=== PATIENT | male | born 1960 | race Two or more races ===

== ENCOUNTER 2020-09-21 08:37 | Inpatient (IN) | payer MEDICARE ==
[~2020-09-21] VITALS: Ht 170.2 cm; Wt 65.6 kg
[2020-09-21] MEDS ORDERED: ASPIRIN ENTERIC COATED 325 MG TABLET.DR. PO ONE (08:45)
--- NOTE | 2020-09-21 08:59 | PHYS DOC ---
Past History Past Medical History: Diabetes, Hypertension, Stroke Past Surgical History: No Surgical History Alcohol Use: None Adult General Chief Complaint Chief Complaint: WEAKNESS/GENERALIZED HPI HPI Patient is a 60M with no past medical history of hypertension diabetes mellitus CVA approximate 4 years ago now presents emergency department complaining of bilateral lower extremity weakness. Patient states that last night he started having a generalized sensation of weakness. Patient states that he woke up this morning and was unable to get out of bed. Patient having difficulty determining if this is unilateral or bilateral. Patient denies any vision changes, vision changes, facial droop, facial tingling, paresthesias. Denies any nausea or vomiting. Review of Systems Review of Systems Constitutional: Denies fever or chills [] Eyes: Denies change in visual acuity, redness, or eye pain [] HENT: Denies nasal congestion or sore throat [] Respiratory: Denies cough or shortness of breath [] Cardiovascular: No additional information not addressed in HPI [] GI: Denies abdominal pain, nausea, vomiting, bloody stools or diarrhea [] : Denies dysuria or hematuria [] Musculoskeletal: Denies back pain or joint pain [] Integument: Denies rash or skin lesions [] Neurologic: Denies headache, or sensory changes. Complains of bilateral lower extremity weakness Endocrine: Denies polyuria or polydipsia [] All other systems were reviewed and found to be within normal limits, except as documented in this note. Current Medications Current Medications Current Medications Medications (Trade) Dose Ordered Sig/[facility] Start Time Stop Time Status Last Admin Dose Admin Aspirin (Aspirin Enteric Coated) 325 mg 1X ONCE 09/21/20 08:45 09/21/20 08:50 DC 09/21/20 08:52 325 MG Allergies Allergies Allergies Coded Allergies Type Severity Reaction Last Updated Verified No Known Drug Allergies 09/21/20 No Physical Exam Physical Exam Constitutional: Well developed, well nourished, no acute distress, non-toxic appearance. [] HENT: Normocephalic, atraumatic, bilateral external ears normal, oropharynx moist, no oral exudates, nose normal. [] Eyes: PERRLA, EOMI, conjunctiva normal, no discharge. [] Neck: Normal range of motion, no tenderness, supple, no stridor. [] Cardiovascular:Heart rate regular rhythm, no murmur [] Lungs & Thorax: Bilateral breath sounds clear to auscultation [] Abdomen: Bowel sounds normal, soft, no tenderness, no masses, no pulsatile masses. [] Skin: Warm, dry, no erythema, no rash. [] Back: No tenderness, no CVA tenderness. [] Extremities: No tenderness, no cyanosis, no clubbing, ROM intact, no edema. [] Neurologic: Alert and oriented X 3, normal motor function, normal sensory function, no focal deficits noted. [] Psychologic: Affect normal, judgement normal, mood normal. [] Current Patient Data Vital Signs Vital Signs Date Time Temp Pulse Resp B/P (MAP) Pulse Ox O2 Delivery O2 Flow Rate FiO2 09/21/20 08:42 97.7 101 18 98 EKG EKG NSR, no ST or T wave changes, intervals normal, no STEMI Radiology/Procedures Radiology/Procedures [] Heart Score Risk Factors: Risk Factors: DM, Current or recent (<one month) smoker, HTN, HLP, family history of CAD, obesity. Risk Scores: Risk Factors: DM, Current or recent (<one month) smoker, HTN, HLP, family history of CAD, obesity. Course & Med Decision Making Course & Med Decision Making Pertinent Labs and Imaging studies reviewed. (See chart for details) 60M male presented emergency department with what appears to be bilateral lower extremity weakness. Patient does have some difficulty standing and he has some generalized core strength deficiency. I was not able to appreciate any unilateral focal neurologic deficit. Differential at this time does include acute CVA, metabolic derangement or other infection that could cause generalized weakness. Will obtain a CT of the head and basic labs and reevaluate. 10:38 -CT head is negative and blood work does demonstrate elevated glucose but no other significant findings. However on the patient's initial arrival he did attempt to ambulate and appeared to fall was not able to ambulate on his own. Because of amatory dysfunction feel that the patient needs to be admitted. Attempting to reach neurology consultation to determine if the patient would need to be transferred. Dragon Disclaimer Dragon Disclaimer This electronic medical record was generated, in whole or in part, using a voice recognition dictation system. Departure Departure: Referrals: PCP,UNKNOWN (PCP) ANDREW DANIELLE MD Sep 21, 2020 08:59
[2020-09-21 09:22] LABS: CALCIUM 9.1 mg/dL (8.5-10.1); CREATININE 1.5 mg/dL (0.7-1.3); GFR 48.1; POTASSIUM 3.6 mmol/L (3.5-5.1)
[2020-09-21 09:30] LABS: BASO # 0.1 x10^3/uL (0.0-0.2); BASO % 1 % (0-3); EOS % 0 % (0-3); HEMATOCRIT 46.5 % (39.0-53.0); HEMOGLOBIN 15.8 g/dL (13.0-17.5); LYMPH # 1.6 x10^3/uL (1.0-4.8); LYMPH % 16 % (24-48); MEAN CORPUSCULAR HEMOGLOBIN 30 pg (25-35); MEAN CORPUSCULAR HGB CONC 34 g/dL (31-37); MEAN CORPUSCULAR VOLUME 89 fL (79-100); MONO # 0.5 x10^3/uL (0.0-1.1); MONO % 5 % (0-9); NEUT # 8.2 x10^3uL (1.8-7.7); NEUT % 78 % (31-73); PLATELET COUNT 374 x10^3/uL (140-400); RED BLOOD COUNT 5.25 x10^6/uL (4.30-5.70); WHITE BLOOD COUNT 10.5 x10^3/uL (4.0-11.0)
[2020-09-21 09:37] LABS: ALBUMIN/GLOBULIN RATIO 1.3 (1.0-1.7); TOTAL BILIRUBIN 0.8 mg/dL (0.2-1.0)
--- NOTE | 2020-09-21 09:52 | RAD ---
CT HEAD INDICATION: Bilateral lower extremity weakness COMPARISON: None Available. Exposure: One or more of the following individualized dose reduction techniques were utilized for thi s examination: 1. Automated exposure control 2. Adjustment of the mA and/or kV according to patient size 3. Use of iterative reconstruction technique TECHNIQUE: 5 mm contiguous axial images were obtained from the skull base to the vertex in both bone and soft tissue algorithm. FINDINGS: Mild bilateral periventricular white matter hypodensities likely chronic small vessel ischemic diseas e. Probable arachnoid cyst right posterior fossa. No evidence of acute intracranial hemorrhage. No extra-axial fluid collections. No mass effect or midline shift. Ventricular size is appropriate. Basal cisterns are patent. No fractures identified.Alcantar-white differentiation is preserved.Globes and orbits are within normal l imits. Paranasal sinuses and mastoid air cells are clear. IMPRESSION: No acute intracranial findings. Electronically signed by: Magdaleno Kinney MD (09/21/2020 9:50 AM) [id number]
[2020-09-21] MEDS ORDERED: IV NORMAL SALINE 1,000ML 1,000 ML IV ONE (10:00)
[2020-09-21] MEDS ORDERED: ONDANSETRON PF 4 MG/2 ML VIAL. IVP PRN (12:45)
--- NOTE | 2020-09-21 15:52 | NUR ---
The patient, SETH PULIDO, 60 y/o, M admitted by SULEIMAN DUNN MD, was given written information regarding hospital policies, unit procedures and contact persons. Valuables were checked and left in patients room.
[2020-09-21 15:59] VITALS: BP 156/136
[2020-09-21] MEDS ORDERED: METOPROLOL TART IMMED RELEASE 50 MG TABLET PO ONE (17:15)
[2020-09-21] MEDS: IV NORMAL SALINE 1,000ML 1,000 ML IV SCH (18:15)
[2020-09-21] MEDS: hydrALAZINE 20 MG/ML VIAL. IV PRN (19:28)
--- NOTE | 2020-09-21 19:28 | HP ---
ADMIT DATE: 09/21/2020 HISTORY OF PRESENT ILLNESS: A 60-year-old male came in through the Emergency Room. The patient has been having problems with his lower extremities extreme weakness, bilateral legs. The patient can stand up. He has been falling. The patient notes that he was unable to get out of bed this morning because of his weakness. The patient appears to be basically bilaterally. The patient otherwise denies any changes or chest pain, shortness of breath, facial drooping, tingling or paresthesia of the upper extremities. The patient because of this sudden nonacute of weakness, was admitted to the hospital for further evaluation since he could not stand up without falling over. Impression neurological symptoms, he has had a possible previous history of CVA, numbness in bilateral legs, cardiac disorders, hypertension, respiratory disorders. He has about a 50 [id number] history of smoking. ALLERGIES: He has no known drug allergies. FAMILY HISTORY: Unremarkable or not being able to be discussed. HOME MEDICATIONS: I believe he is on any poorly controlled diabetic as well. The patient in turn is a full code. SOCIAL HISTORY: As noted 52 or [id number] history of smoking with at times, heavy alcohol use at times. REVIEW OF SYSTEMS: Denies chest pain, shortness of breath, abdominal pain as stated in the HPI, just generalized weakness in the legs with decreased sensation as well. PHYSICAL EXAMINATION: GENERAL: This is a 60-year-old white male, looks older than stated age. VITAL SIGNS: Blood pressure 159/117, respiratory rate 22, pulse 110, afebrile. HEENT: The patient's head was atraumatic, normocephalic. Eyes: PERRLA without jaundice. The mouth and throat were basically normal. Poor dentition. LUNGS: Basically diminished throughout, but clear. CARDIOVASCULAR: Regular sinus rhythm, tachycardic. ABDOMEN: Soft, nontender, scaphoid. EXTREMITIES: No clubbing, cyanosis. Some mild musculoskeletal wasting, weakness in the legs and the proximal and distal muscles. Reflexes hyperreflexia was noted. NEUROLOGIC: The patient was able to talk about his situation at hand. The patient was admitted to the hospital for further evaluation. IMPRESSION: Acute onset of his generalized weakness to his lower extremities as well as an evaluation of his hypertensive urgency. His blood sugar was 263. He has been placed on a sliding scale. Hemoglobin A1c was noted to be obtained. Slight hyponatremia. We will obtain another test as indicated. His troponin was normal. His creatinine has not been reported back yet, but needs to be evaluated. He has also been in contact with somebody with COVID-19, so we will do a COVID test on him as well. Chest x-ray is pending. PLAN: Continue to work him up as he has multiplicity of medical problems. A CT of his head was unremarkable. SULEIMAN DUNN MD DR: HALEY/santa JOB#: [id number] / [id number]
[2020-09-21 19:37] VITALS: BP 216/123
[2020-09-21] MEDS ORDERED: DOXYLAMINE SUCCINATE 25 MG TABLET PO PRN (22:45)
[2020-09-21] MEDS ORDERED: LABETALOL 250 MG in IV NORMAL SALINE 250ML 200 ML IV PRN (22:45)
[2020-09-21 23:16] VITALS: BP 147/94
--- NOTE | 2020-09-21 23:28 | NUR ---
Nursing Note The patient has been compliant, disorganized and withdrawn this shift. The patient has been compliant with cares and assessments this shift. The patients lungs are clear and bowels are active. The patient appears to be alert and oriented to self and location. The patient has extreme difficulty when ambulating and requires x2 assist at all times. The patient had one episode where he attempted to exit the bed without assistance and in the process removed his peripheral IV. This nurse was able to place another IV in his right forearm. IV is 20g. The patient had one episode of emesis this shift while laying in bed. When assessed after vomiting the patient stated that he no longer felt ill and had no nausea.
[2020-09-22] VITALS (13 sets, daily range): BP systolic 97–162; BP diastolic 61–106
--- NOTE | 2020-09-22 00:53 | CONS ---
DATE OF CONSULTATION: REFERRING PHYSICIAN: Dr. Poli Oviedo. REASON FOR CONSULTATION: Acute onset of generalized weakness and weakness of the lower extremities. HISTORY OF PRESENT ILLNESS: This is a 60-year-old right-handed male who was admitted through Emergency Room on account of an acute onset of generalized weakness, more prominent in the lower extremities. According to , the patient woke up this morning and he could not get out of the bed. He had had impaired balance and frequent falls. The patient stated also he has history of stroke 4 years ago. He was transferred to [facility], but according to his , the patient did not offer any workup. Therefore, he was admitted to [facility] for further evaluation. Finally, the patient was referred for a "psychologist." Since that time, the patient has not been seen by any neurologist. His stated that his weakness has been intermittent and appears to be episodic. He has been having those spells many times in the last 3 years, but he has been also able to walk without assistance. When I asked him if he ever used a cane or walker, the patient stated he never used any fish hatchery assistant in walking. He denies headaches, visual disturbances, nausea, vomiting, chest pain, shortness of breath or palpitation, dysarthria or dysphagia. He also complains of numbness and paresthesia of the lower extremities. On arrival to Emergency Room, his blood pressure was 156/136. Initial nonenhanced head CT scan revealed no acute intracranial process as hemorrhage, but it showed chronic small vessel ischemic changes and probably arachnoid cyst on the right posterior fossa. During the interview, the patient denies any pain. PAST MEDICAL HISTORY: Significant for hypertension, diabetes mellitus, history of stroke as described above. FAMILY HISTORY: Noncontributory. SOCIAL HISTORY: The patient is . He is disabled due to previous stroke. He quitted drinking, but he smokes cigarette daily. CURRENT HOME MEDICATIONS: Metoprolol; however, the patient is not compliant with his metformin and other medications. ALLERGIES: No known drug allergies. REVIEW OF SYSTEMS: A 14-point review of system was performed as mentioned above in the history of present illness. PHYSICAL EXAMINATION: GENERAL: Well-developed, well-nourished male, not in acute distress. He weighs 77.3 kilos. VITAL SIGNS: Blood pressure 159/117, respiratory rate is 22, pulse is 109, temperature 98.2, oxygen saturation is 97% on room air. HEENT: Normocephalic, atraumatic, otherwise unremarkable. NECK: Supple. Negative for carotid bruit, lymphadenopathy or thyromegaly. LUNGS: Clear to A and P. CARDIOVASCULAR: Regular rate and rhythm, normal S1, S2. ABDOMEN: Soft. Bowel sounds positive. EXTREMITIES: Negative for cyanosis, clubbing or pitting edema. NEUROLOGICAL: MENTAL STATUS: The patient is alert and oriented to place and time. Speech is fluent. There is no language dysfunction. Memory, judgment and abstract thinking are fair. The patient denies hallucination or delusion. CRANIAL NERVES: Visual machado are full. The pupils are reactive to light and accommodation. The extraocular movements are intact. There is no nystagmus. There are no facial motor or sensory deficits. Hearing is intact bilaterally. The palate is elevated symmetrically. Sternocleidomastoid muscles are powerful bilaterally. The patient shrugs his shoulders symmetrically, protrudes his tongue in the midline without fasciculation or atrophy. MOTOR EXAMINATION: No focal muscle bulk wasting. The tone is normal. The strength is 4/5 in the right upper and lower extremities. The strength elsewhere was 5/5 throughout. SENSORY EXAMINATION: Revealed diminished pinprick and light touch senses over the right upper and lower extremities. Deep tendon reflexes were asymmetric and active without pathologic responses. GAIT: Not tested. LABORATORY DATA: CBC revealed white blood cells of 10.5 thousand, hemoglobin 15.8, hematocrit 46.5, platelet count is 374,000. Chemistry revealed sodium of 134, potassium 3.6, chloride 95, CO2 of 31, BUN 11, creatinine 1.5, glucose is 263. Lactic acid is normal at 1.8. Liver enzyme is not elevated. Troponin level is normal and alkaline phosphatase is high at 138. Coagulation is normal. DIAGNOSTIC DATA: Chest x-ray is pending. Nonenhanced head CT scan consistent with chronic small vessel ischemic changes, otherwise unremarkable. IMPRESSION: 1. Episodic generalized weakness and today the weakness is more prominent on the lower extremities; however, neurologic examination revealed right hemiparesis with right hemisensory deficits with negative head CT scan for acute process. 2. Multiple medical problems include diabetes mellitus, hypertension; however, the patient appeared to be noncompliant with his medication. 3. History of previous stroke 4 years ago; however, there has been an unclear workup done for stroke in the past. I could not rule out any underlying psychiatric disorders for his somatic symptoms. RECOMMENDATIONS: 1. Continue with current home medications for hypertension and diabetes. 2. Continue with aspirin 325 mg p.o. daily. 3. If the patient continues to have right hemiparesis, brain MRI is recommended. 4. Smoking cessation. 5. Physical therapy evaluation. M Tracy SCHULER MD DR: JAIRON/nts JOB#: [id number] / [id number]
[2020-09-22] MEDS ORDERED: DEXTROSE 50% 25 GM / 50ML DISP.SYRIN. IV PRN (01:15)
[2020-09-22] MEDS: IV NORMAL SALINE 1,000ML 1,000 ML IV SCH (02:25)
--- NOTE | 2020-09-22 03:30 | RAD ---
XR CHEST 1V 09/21/2020 5:21 PM INDICATION: Weakness COMPARISON: None available TECHNIQUE: Portable frontal view of the chest is provided. FINDINGS: The cardiomediastinal silhouette is within normal limits. Lungs are clear. There are no significant pleural effusions. There is no pulmonary vascular congestion. No pneumothora x. No suspicious osseous abnormality. IMPRESSION: There is no acute cardiopulmonary process. Electronically signed by: Ginger Lockhart MD (09/22/2020 3:28 AM) [facility]
[2020-09-22 05:07] LABS: GAMMA GLUTAMYL TRANSPEPTIDASE 49 U/L (10-85)
[2020-09-22 05:08] LABS: C REACTIVE PROTEIN < 0.5 mg/L (0-3.3)
[2020-09-22 05:22] LABS: BASO # 0.1 x10^3/uL (0.0-0.2); BASO % 1 % (0-3); EOS % 0 % (0-3); HEMATOCRIT 45.2 % (39.0-53.0); HEMOGLOBIN 15.4 g/dL (13.0-17.5); LYMPH # 1.6 x10^3/uL (1.0-4.8); LYMPH % 8 % (24-48); MEAN CORPUSCULAR HEMOGLOBIN 30 pg (25-35); MEAN CORPUSCULAR HGB CONC 34 g/dL (31-37); MEAN CORPUSCULAR VOLUME 87 fL (79-100); MONO % 5 % (0-9); NEUT # 16.3 x10^3uL (1.8-7.7); NEUT % 86 % (31-73); PLATELET COUNT 386 x10^3/uL (140-400); RED CELL DISTRIBUTION WIDTH 13.1 % (11.5-14.5)
[2020-09-22 05:28] LABS: ALBUMIN 3.6 g/dL (3.4-5.0); ALBUMIN/GLOBULIN RATIO 1.2 (1.0-1.7); CALCIUM 8.7 mg/dL (8.5-10.1); CREATININE 1.3 mg/dL (0.7-1.3); GFR 56.7; POTASSIUM 3.1 mmol/L (3.5-5.1); TOTAL BILIRUBIN 1.3 mg/dL (0.2-1.0); TOTAL PROTEIN 6.6 g/dL (6.4-8.2)
[2020-09-22] MEDS ORDERED: POTASSIUM CHLORIDE 20 MEQ TABLET.ER. PO ONE (06:00)
--- NOTE | 2020-09-22 06:25 | EKG ---
[address] [address] Test Date: 2020-09-22 Test Time: 06:20:17 Pat Name: SETH PULIDO Department: Room: [facility] Gender: M Hanger Off: : 1960 Requested By: SULEIMAN DUNN Order Number: [id number] Reading MD: Vincenzo Contreras Measurements Intervals [place] Rate: 81 P: 59 HI: 138 QRS: 35 QRSD: 90 T: 89 QT: 424 QTc: 493 Interpretive Statements SINUS RHYTHM QRS(T) CONTOUR ABNORMALITY CONSIDER INFERIOR MYOCARDIAL DAMAGE T ABNORMALITY IN HIGH LATERAL LEADS PROLONGED QT ABNORMAL ECG RI6.01 No previous ECG available for comparison Electronically Signed On 10-01-2020 15:34:41 [employer] by Vincenzo Contreras
[2020-09-22 06:44] LABS: % BANDS 1 % (0-9); % LYMPHS 9 % (24-48); % MONOS 1 % (0-10); % SEGS 89 % (35-66)
[2020-09-22 06:45] LABS: PLT ESTIMATE ADEQUATE (ADEQUATE)
[2020-09-22] MEDS ORDERED: ELECTROLYTE (ICU) PROTOCOL. MC PRN ×2 (06:45→11:00)
[2020-09-22] MEDS: PANTOPRAZOLE 40 MG TABLET. PO SCH (07:29)
[2020-09-22] MEDS: ASPIRIN 325 MG TABLET PO SCH (07:29)
[2020-09-22] MEDS: LORazepam 0.5 MG TABLET PO PRN ×2 (07:29→11:01)
[2020-09-22] MEDS: METOPROLOL SUCC 24HR ER 50 MG TAB.ER.24H. PO SCH (07:29)
[2020-09-22] MEDS: ENOXAPARIN 40 MG/0.4 ML SYRINGE. SQ SCH (07:31)
[2020-09-22] MEDS: hydrALAZINE 20 MG/ML VIAL. IV PRN (07:57)
[2020-09-22] MEDS: INSULIN LISPRO 300 UNITS/3 ML VIAL. SQ SCH ×3 (08:17→18:28)
[2020-09-22] MEDS ORDERED: IOHEXOL 350 MG/ML 100 ML VIAL. IV ONE (08:30)
[2020-09-22 08:58] LABS: BILIRUBIN,URINE NEG (NEG); CLARITY,URINE CLEAR; COLOR,URINE YELLOW; GLUCOSE,URINE 500 mg/dL (NEG)
[2020-09-22 08:59] LABS: BACTERIA,URINE 0 /HPF (0-FEW); NITRITE,URINE NEG (NEG); SQUAMOUS EPITHELIAL CELL,UR FEW /LPF
[2020-09-22 09:00] LABS: HYALINE CASTS, URINE FEW /HPF
--- NOTE | 2020-09-22 09:15 | NUR ---
went into patients room with nurse NHAN Montez. PT was hanging his legs out of the bed and messing with his telemetry leads and trying to take them off. Pt was re-oriented and when asked questions pt just stared at this nurse and was unable to answer and when he tried to answer it was noted that his speech was slurred. pt continues to this was noted and called to dr. aranda. order for stat head ct with and without contrast.
--- NOTE | 2020-09-22 09:25 | NUR ---
nursing operations supervisor chemical cleaning was notified of patients status and code stroke called.
--- NOTE | 2020-09-22 09:27 | NUR ---
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 Pt is not able to use the right side of his body. this was reported to Dr. Oviedo.
[2020-09-22 10:30] LABS: BGAS PH 7.44 (7.35-7.46)
--- NOTE | 2020-09-22 10:39 | RAD ---
CT HEAD INDICATION: Reason: RT SIDED WEAKNESS SLURRED SPEACH / Spl. Instructions: / History: COMPARISON: 09/21/2020. Exposure: One or more of the following individualized dose reduction techniques were utilized for thi s examination: 1. Automated exposure control 2. Adjustment of the mA and/or kV according to patient size 3. Use of iterative reconstruction technique TECHNIQUE: 5 mm contiguous axial images were obtained from the skull base to the vertex in both bone and soft tissue algorithm. FINDINGS: Mild bilateral periventricular white matter hypodensities likely chronic small vessel ischemic diseas e. There is questionable small hypodensity identified in the left basal ganglia. Probable arachnoid c yst right posterior fossa, developmental. No evidence of acute intracranial hemorrhage. No extra-axial fluid collections. No mass effect or midline shift. Ventricular size is appropriate. Basal cisterns are patent. No fractures identified..Globes and orbits are within normal limits. Paranasal sinuses and mastoid air cells are clear. IMPRESSION: Small hypodensity left basal ganglia could be small vessel disease or tiny focus of infarct is not ex cluded. MRI follow-up can be considered. FOR INTERNAL CODING PURPOSES Critical result: Findings discussed with patient's nurse at 09/22/2020 10:35 AM. RESULT CODE: (C) . Electronically signed by: Magdaleno Kinney MD (09/22/2020 10:36 AM) [id number]
--- NOTE | 2020-09-22 10:52 | RAD ---
Exam performed: CT pulmonary angiogram of the chest with contrast. CT angiogram head and neck Date: 09/22/2020. Comparison:Single view chest from 09/21/2020 Indication: Dyspnea lactic acidosis, code stroke CT angiogram chest: Technique: Contiguous helical acquisitions are obtained through the chest during intravenous administ ration of [ 100 ] cc of [ Omnipaque 350 ] . [Sagittal and coronal reformatted images and ] MIP i mages were obtained and reviewed Findings: The structures at the thoracic inlet including both lobes of the thyroid gland appear normal. Pulmonary arterial opacification is adequate to evaluate for pulmonary embolus. There is no evidence for pulmonary embolism. The heart is normal in size. Mild aneurysmal dilatation of the ascending aort a is seen measuring up to 3.9 x 4.1 cm in maximum AP and transverse dimension at the level of right m ain pulmonary artery. No pericardial effusion is seen. No mediastinal or hilar lymphadenopathy is see n. No infiltrates or pleural effusions are seen. No pulmonary nodules are detected. Upper abdominal s tructures appear unremarkable. Osseous structures appear intact. Impression: 1. Study is negative for pulmonary embolism. 2. Mild aneurysmal dilatation of the ascending aorta without dissection. End impression 1. CTA HEAD WITH CONTRAST. 2. CTA NECK WITH CONTRAST. HISTORY: Slurred speech, codestroke. TECHNIQUE: Computed tomographic angiography of the head and neck was performed before and after the i ntravenous administration of 75 mL Isovue-370. Three-dimensional reconstructions were also performed. One or more of the following individualized dose reduction techniques were utilized for this examina tion: 1. Automated exposure control. 2. Adjustment of the mA and/or kV according to patient size. 3. Use of iterative reconstruction technique. COMPARISON: CT head without contrast from earlier today .. FINDINGS: Angiographic findings: The timing of the bolus is not appropriate for evaluation of intracranial vessels. The aortic arch has a typical branching pattern. There is no arch vessel stenosis. Both common carotid arteries are patent without stenosis. Both proximal internal carotid arteries are patent without stenosis, there is suboptimal contrast in the distal internal carotid arteries.. The external carotid systems are patent. The vertebral arteries are grossly patent. There is suboptimal evaluation of the [place], however bilateral proximal middle cerebral ar teries appear patent. The remainder intracranial vessels are not adequately evaluated.. Nonangiographic findings: . Alcantar-white differentiation is preserved. The ventricles are normal in size and position. No abnorma l enhancing mass lesion is seen. The paranasal sinuses appear clear. The orbits are unremarkable. The temporal bones are unremarkable. Bone windows reveal no suspicious lesions. The lung apices demonstrate no acute abnormality. The parotid glands and submandibular glands are unremarkable. The thyroid gland demonstrates no suspi cious lesions. There are no laryngeal or pharyngeal masses. There are no pathologically enlarged lymph nodes. IMPRESSION: 1. The contrast bolus is suboptimal for evaluation of CT angiogram head. 2. Grossly unremarkable bilateral carotid arteries. If there is a strong clinical suspicion for stroke, a repeat CT angiogram head and neck or MRI may be considered. PQRS Compliance Statement: One or more of the following individualized dose reduction techniques were utilized for this examinat ion: 1. Automated exposure control 2. Adjustment of the mA and/or kV according to patient size 3. Use of iterative reconstruction technique Electronically signed by: Kathy Stacy MD (09/22/2020 10:50 AM) [id number]
[2020-09-22] MEDS: NICOTINE 21MG PATCH. TD SCH (11:00)
[2020-09-22] MEDS ORDERED: PIP/TAZO PER PHARMACY MC PRN (11:00)
[2020-09-22] MEDS: IV RINGERS SOLUTION,LACTATED 1,000 ML IV SCH ×2 (11:26→16:48)
[2020-09-22 11:43] LABS: INFLUENZA A PATIENT NEGATIVE (NEGATIVE); INFLUENZA B PATIENT NEGATIVE (NEGATIVE)
--- NOTE | 2020-09-22 12:00 | NUR ---
called for an update and requested patient be transferred to [facility] for an MRI. Dr. Oviedo notified and is going to call the patients .
--- NOTE | 2020-09-22 13:30 | NUR ---
after speaking with , dr. aranda called this nurse and stated patient was going to stay at [facility] due to the treatment plan and the patient did not need an MRI. will ctm and assess as needed. Pt is continuing to pull off his telemetry leads and pull at catheter.
--- NOTE | 2020-09-22 13:45 | PDOC2 ---
CONSULT DOS: DATE: 09/22/20 TIME: 13:36 Reason for Consult: Elevated troponin level Referring Physician: Dr. Oviedo Chief Complaint Lower extremity weakness Source: Chart review, Patient Problem List Problems Medical Problems: (1) Weakness Status: Acute History of Present Illness 60-year-old male with history of CVA presented with bilateral lower extremity weakness. According to his he woke up in the morning and could not get out of his bed. He apparently has been having these episodes intermittently for the past 3 years and has had recurrent falls. He has been admitted for further work-up and neurology has been consulted. He apparently became unresponsive this morning per nursing personnel and underwent emergent CT scan, results of which are pending. His troponin level was slightly elevated prompting cardiology consultation. Patient is a poor historian currently and no significant history can be obtained but review of records did not show any complaints of chest pain. He does not have any prior history of coronary di sease. Past Medical History Hypertension CVA Diabetes mellitus Family History: Hypertension Social History Patient has 40 to 50 pack years of smoking history. He apparently quit drinking a few years ago and does not have any history of drug abuse. Current Medications Current Medications Aspirin (Aspirin Enteric Coated) 325 mg 1X ONCE PO Last administered on 09/21/20at 08:52; Start 09/21/20 at 08:45; Stop 09/21/20 at 08:50; Status DC Sodium Chloride 1,000 ml @ 1,000 mls/hr 1X ONCE IV ; Start 09/21/20 at 10:00; Stop 09/21/20 at 10:59; Status DC Ondansetron HCl (Zofran) 4 mg PRN Q4HRS PRN IVP NAUSEA/VOMITING; Start 09/21/20 at 12:45; Stop 09/22/20 at 12:44; Status DC Metoprolol Tartrate (Lopressor) 50 mg 1X ONCE PO Last administered on 09/21/20at 18:30; Start 09/21/20 at 17:15; Stop 09/21/20 at 17:16; Status DC Metoprolol Succinate (Toprol Xl) 50 mg DAILY PO Last administered on 09/22/20at 07:29; Start 09/22/20 at 09:00 Sodium Chloride 1,000 ml @ 125 mls/hr Q8H IV Last administered on 09/22/20at 02:25; Start 09/21/20 at 17:15; Stop 09/22/20 at 08:09; Status DC Hydralazine HCl (Apresoline) 20 mg PRN Q6HRS PRN IV ELEVATED BP, SEE COMMENTS Last administered on 09/22/20at 07:57; Start 09/21/20 at 19:00 Labetalol HCl 250 mg/Sodium Chloride 250 ml @ 30 mls/hr CONT PRN IV SEE I/O RECORD; Start 09/21/20 at 22:45 Lorazepam (Ativan) 0.5 mg PRN QID PRN PO ANXIETY / AGITATION Last administered on 09/22/20at 11:01; Start 09/21/20 at 22:45 Doxylamine Succinate (Unisom) 25 mg PRN QHS PRN PO INSOMNIA Last administered on 09/22/20at 00:51; Start 09/21/20 at 22:45 Insulin Human Lispro (HumaLOG) 0-7 UNITS TIDWMEALS SQ Last administered on at 08:17; Start 09/22/20 at 08:00 Dextrose (Dextrose 50%-Water Syringe) 12.5 gm PRN Q15MIN PRN IV SEE COMMENTS; Start 09/22/20 at 01:15 Potassium Chloride (Klor-Con) 40 meq 1X ONCE PO Last administered on 09/22/20at 05:59; Start 09/22/20 at 06:00; Stop 09/22/20 at 06:01; Status DC Nifedipine (Procardia Xl) 30 mg DAILY PO Last administered on 09/22/20at 07:31; Start 09/22/20 at 09:00; Stop 09/22/20 at 08:07; Status DC Aspirin (Pierce Aspirin) 325 mg DAILYWBKFT PO Last administered on 09/22/20at 07:29; Start 09/22/20 at 08:00 Pantoprazole Sodium (Protonix) 40 mg DAILYAC PO Last administered on 09/22/20at 07:29; Start 09/22/20 at 07:30 Info (Icu Electrolyte Protocol) 1 ea CONT PRN PRN MC PER PROTOCOL; Start 09/22/20 at 06:45; Stop 09/22/20 at 11:00; Status DC Enoxaparin Sodium (Lovenox 40mg Syringe) 40 mg Q24H SQ Last administered on 09/22/20at 07:31; Start 09/22/20 at 09:00 Nifedipine (Procardia Xl) 30 mg DAILY PO Last administered on 09/22/20at 08:17; Start 09/22/20 at 08:15 Lactated Ringer's 1,000 ml @ 125 mls/hr Q8H IV Last administered on 09/22/20at 11:26; Start 09/22/20 at 08:15 Iohexol (Omnipaque 350 Mg/ml) 100 ml 1X ONCE IV ; Start 09/22/20 at 08:30; Stop 09/22/20 at 08:31; Status DC Nicotine (Nicoderm Cq 21mg Patch) 1 patch DAILY TD Last administered on 09/22/20at 11:00; Start 09/22/20 at 11:00 Nicotine (Nicoderm Cq 21mg Patch) 1 patch DAILY TD ; Start 09/23/20 at 09:00; Stop 09/22/20 at 10:58; Status DC Piperacillin Sod/ Tazobactam Sod (Zosyn Per Pharmacy) 1 each PRN DAILY PRN MC SEE COMMENTS; Start 09/22/20 at 11:00 Levofloxacin/ Dextrose 150 ml @ 150 mls/hr DAILY IV Last administered on 09/22/20at 11:25; Start 09/22/20 at 11:00 Info (Icu Electrolyte Protocol) 1 ea CONT PRN PRN MC PER PROTOCOL; Start 09/22/20 at 11:00 Piperacillin Sod/ Tazobactam Sod 4.5 gm/Sodium Chloride 50 ml @ 100 mls/hr Q8HRS IV ; Start 09/22/20 at 14:00 Lorazepam (Ativan Inj) 2 mg PRN Q4HRS PRN IVP ANXIETY / AGITATION Last administered on 09/22/20at 12:18; Start 09/22/20 at 12:15 Olanzapine (ZyPREXA ZYDIS) 5 mg PRN Q2HRS PRN PO PSYCHOSIS; Start 09/22/20 at 13:15 Allergies: Coded Allergies: No Known Drug Allergies (Unverified , 09/21/20) Review of System Review of systems cannot be obtained secondary to mental status changes General: Other (Agitated and confused) HEENT: Atraumatic Lungs: Clear to auscultation Heart: Regular rate, Other (ESM aortic) Abdomen: Soft Extremities: No edema VITALS Vital Signs Date Time Temp Pulse Resp B/P (MAP) Pulse Ox O2 Delivery O2 Flow Rate FiO2 09/22/20 12:30 83 18 97/61 (73) 96 Room Air 09/22/20 04:50 2.0 09/21/20 23:16 98.2 Labs Laboratory Tests Test 09/21/20 09:00 09/22/20 04:50 09/22/20 05:35 09/22/20 07:40 White Blood Count 10.5 x10^3/uL (4.0-11.0) 19.0 x10^3/uL (4.0-11.0) Red Blood Count 5.25 x10^6/uL (4.30-5.70) 5.20 x10^6/uL (4.30-5.70) Hemoglobin 15.8 g/dL (13.0-17.5) 15.4 g/dL (13.0-17.5) Hematocrit 46.5 % (39.0-53.0) 45.2 % (39.0-53.0) Mean Corpuscular Volume 89 fL (79-100) 87 fL (79-100) Mean Corpuscular Hemoglobin 30 pg (25-35) 30 pg (25-35) Mean Corpuscular Hemoglobin Concent 34 g/dL (31-37) 34 g/dL (31-37) Red Cell Distribution Width 13.0 % (11.5-14.5) 13.1 % (11.5-14.5) Platelet Count 374 x10^3/uL (140-400) 386 x10^3/uL (140-400) Neutrophils (%) (Auto) 78 % (31-73) 86 % (31-73) Lymphocytes (%) (Auto) 16 % (24-48) 8 % (24-48) Monocytes (%) (Auto) 5 % (0-9) 5 % (0-9) Eosinophils (%) (Auto) 0 % (0-3) 0 % (0-3) Basophils (%) (Auto) 1 % (0-3) 1 % (0-3) Neutrophils # (Auto) 8.2 x10^3uL (1.8-7.7) 16.3 x10^3uL (1.8-7.7) Lymphocytes # (Auto) 1.6 x10^3/uL (1.0-4.8) 1.6 x10^3/uL (1.0-4.8) Monocytes # (Auto) 0.5 x10^3/uL (0.0-1.1) 1.0 x10^3/uL (0.0-1.1) Eosinophils # (Auto) 0.0 x10^3/uL (0.0-0.7) 0.0 x10^3/uL (0.0-0.7) Basophils # (Auto) 0.1 x10^3/uL (0.0-0.2) 0.1 x10^3/uL (0.0-0.2) Prothrombin Time 10.0 SEC (9.4-11.4) Prothromb Time International Ratio 1.0 (0.9-1.1) Activated Partial Thromboplast Time 24 SEC (23-33) Fibrinogen 375 mg/dL (200-400) Sodium Level 134 mmol/L (136-145) 137 mmol/L (136-145) Potassium Level 3.6 mmol/L (3.5-5.1) 3.1 mmol/L (3.5-5.1) Chloride Level 95 mmol/L (98-107) 99 mmol/L (98-107) Carbon Dioxide Level 31 mmol/L (21-32) 25 mmol/L (21-32) Anion Gap 8 (6-14) 13 (6-14) Blood Urea Nitrogen 11 mg/dL (8-26) 16 mg/dL (8-26) Creatinine 1.5 mg/dL (0.7-1.3) 1.3 mg/dL (0.7-1.3) Estimated GFR (Cockcroft-Gault) 48.1 56.7 BUN/Creatinine Ratio 7 (6-20) 12 (6-20) Glucose Level 263 mg/dL (70-99) 198 mg/dL (70-99) Lactic Acid Level 1.8 mmol/L (0.4-2.0) 3.1 mmol/L (0.4-2.0) Calcium Level 9.1 mg/dL (8.5-10.1) 8.7 mg/dL (8.5-10.1) Magnesium Level 2.1 mg/dL (1.8-2.4) 2.2 mg/dL (1.8-2.4) Total Bilirubin 0.8 mg/dL (0.2-1.0) 1.3 mg/dL (0.2-1.0) Gamma Glutamyl Transpeptidase 49 U/L (10-85) Aspartate Amino Transf (AST/SGOT) 10 U/L (15-37) 85 U/L (15-37) Alanine Aminotransferase (ALT/SGPT) 16 U/L (16-63) 19 U/L (16-63) Alkaline Phosphatase 138 U/L (46-116) 124 U/L (46-116) Creatine Kinase 39 U/L (39-308) Troponin I Quantitative < 0.017 ng/mL (0-0.055) 0.131 ng/mL (0-0.055) C-Reactive Protein < 0.5 mg/L (0-3.3) ST-Owm-Z-Type Natriuretic Peptide 44 pg/mL (0-124) Total Protein 7.0 g/dL (6.4-8.2) 6.6 g/dL (6.4-8.2) Albumin 4.0 g/dL (3.4-5.0) 3.6 g/dL (3.4-5.0) Albumin/Globulin Ratio 1.3 (1.0-1.7) 1.2 (1.0-1.7) Thyroid Stimulating Hormone (TSH) 1.551 uIU/mL (0.358-3.740) Segmented Neutrophils % 89 % (35-66) Band Neutrophils % 1 % (0-9) Lymphocytes % 9 % (24-48) Monocytes % 1 % (0-10) Platelet Estimate Adequate (ADEQUATE) D-Dimer (Sara) 0.26 mg/L (0.00-0.50) Glucose (Fingerstick) 256 mg/dL (70-99) Test 09/22/20 07:45 09/22/20 09:15 09/22/20 09:30 09/22/20 10:20 Urine Collection Type Void Urine Color Yellow Urine Clarity Clear Urine pH 7.0 Urine Specific [place] 1.020 Urine Protein 30 mg/dl (NEG-TRACE) Urine Glucose (UA) 500 mg/dL (NEG) Urine Ketones (Stick) 80 mg/dL (NEG) Urine Blood Small (NEG) Urine Nitrite Neg (NEG) Urine Bilirubin Neg (NEG) Urine Urobilinogen Dipstick 1.0 mg/dL (0.2 mg/dL) Urine Leukocyte Esterase Neg (NEG) Urine RBC 1-2 /HPF (0-2) Urine WBC 1-4 /HPF (0-4) Urine Squamous Epithelial Cells Few /LPF Urine Bacteria 0 /HPF (0-FEW) Urine Hyaline Casts Few /HPF Lactic Acid Level 4.4 mmol/L (0.4-2.0) Glucose (Fingerstick) 107 mg/dL (70-99) Blood Gas pH 7.44 (7.35-7.46) Blood Gas PCO2 37 mmHg (35-46) Blood Gas PO2 72 mmHg (80-100) Blood Gas HCO3 25 mmol/L (21-28) Arterial Bld O2 Saturation (Calc) 95 % (92-99) FiO2 21 % Test 09/22/20 10:50 09/22/20 11:02 09/22/20 11:31 Influenza Type A (Rapid) Negative (NEGATIVE) Influenza Type B (Rapid) Negative (NEGATIVE) Troponin I Quantitative 0.089 ng/mL (0-0.055) Glucose (Fingerstick) 127 mg/dL (70-99) Assessment/Plan 1. Slight troponin elevation, most probably demand ischemia. EKG showed sinus rhythm without any acute changes. We will check 2D echocardiogram if Covid test comes back negative. Ischemic evaluation could be considered as an outpatient. 2. Bilateral lower extremity weakness in a patient with known history of CVA. Initial CT scan of the head did not show any acute intracranial process. Repeat CT scan of the head secondary to the episode of unresponsiveness this morning is pending. Neurology team following. 3. Accelerated hypertension: Better controlled since admission 4. Diabetes mellitus type 2: Treat per IM 5. PUI with recent Covid exposure. Covid test pending. Thank you for your consultation KARELY DAMICO MD Sep 22, 2020 13:45
--- NOTE | 2020-09-22 15:00 | NUR ---
pt continues to try and get out of bed, he will hang his legs to the side of the bed. Pt will pull off his telemetry leads even after being directed to not do that. Pt is pulling at IV lines and grabbing the IV pole and pulling it close to his bed. Dr. Oviedo notified and order obtained for Ativan 2 mg IVP. Will ctm.
[2020-09-22] MEDS: PIPERACILLIN/TAZOBACTAM 4.5 GM in IV NORMAL SALINE 50ML 50 ML IV SCH ×2 (15:08→21:52)
--- NOTE | 2020-09-22 16:12 | NUR ---
assessed pt for midline, pt getting frequent blood draws, not on a medication requiring central access, may only stay another 3 days. used midline bad kit and performed sterile procedure with seldinger technique usage of chloraprep x 3,. Baslic vein on left upper arm. good blood return, flushed with NS. applied sterile dressing.
--- NOTE | 2020-09-22 16:38 | EKG ---
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
--- NOTE | 2020-09-22 17:35 | NUR ---
pt is starting to become more awake after ativan administration, pt is starting to pull on his lines and said he doesnt want to talk. there is no improvement noted in the R sideded weakness. Will ctm.
[2020-09-22] MEDS: DEXAMETHASONE SOD PHOS 4 MG/ML VIAL. IVP SCH ×2 (18:53→23:58)
[2020-09-22] MEDS: IPRATRPIUM/ALBUTEROL 0.5/2.5MG 3 ML NEBU. INH SCH (20:00)
--- NOTE | 2020-09-22 23:13 | PN ---
DATE: SUBJECTIVE: The patient has been restless throughout the night with mental status changes, early this morning. OBJECTIVE: GENERAL: Well-developed, well-nourished male, not in acute distress. VITAL SIGNS: Blood pressure 133/84, respiratory rate 28, pulse is 86, temperature is 100% on room air. HEENT: Normocephalic, atraumatic, otherwise unremarkable. NECK: Supple. Negative for carotid bruit, lymphadenopathy or thyromegaly. LUNGS: Clear to A and P. CARDIOVASCULAR: Regular rate and rhythm, normal S1, S2. There is no S3, S4 or murmur. ABDOMEN: Soft. Bowel sounds positive. EXTREMITIES: Negative for cyanosis, clubbing or pitting edema. NEUROLOGICAL EXAM: Mental Status: The patient is alert, but oriented to himself and time. Speech is slow, no language dysfunction. Memory, judgment, and abstract thinking are fair. The patient denies hallucination or delusion. CRANIAL NERVES: Visual machado are full. The pupils are reactive to light and accommodation. The extraocular movements are intact. There is no nystagmus. There is no facial motor or sensory deficits. Hearing is intact bilaterally. Otherwise, unremarkable. Motor examination: No focal muscle bulk was seen. The tone is normal. The strength is 4/5 in the right upper and lower extremity consistent with hemiparesis. Sensory examination revealed diminished pinprick and light touch senses over the right upper and lower extremities. Deep tendon reflexes were symmetric without pathologic responses. Gait not tested. DIAGNOSTIC DATA: Repeating head CT scan this morning revealed small hypodensity on the left basal ganglia may represent possible small infarct. CT angio of the head revealed no intracranial abnormalities or significant carotid stenosis and CT angio of the chest revealed no evidence of pulmonary embolism. LABORATORY DATA: Today revealed leukocytosis with white blood cells of 19,000 with left shift with neutrophils of 86. IMPRESSION: 1. Episodic generalized weakness according to his . 2. Right hemiparesis and hemisensory deficit, probably due to old stroke versus subacute right hemispheric small infarct. 3. New development of leukocytosis, rule out systemic infections versus sepsis. 4. Multiple medical problems include hypertension, diabetes mellitus type 2, history of stroke 4 years ago, acute encephalopathy, probably due to systemic infections. 5. Slightly elevated troponin level probably due to ischemic events. RECOMMENDATIONS: 1. Treat the underlying systemic infections. 2. Await for COVID-19 results as the patient did have exposure to 1 relative with positive COVID-19 few weeks ago. Otherwise, continue with current management. Physical Therapy evaluation also pending. M Tracy SCHULER MD DR: JAIRON/santa JOB#: [id number] / [id number]
[2020-09-23] VITALS (23 sets, daily range): BP systolic 104–189; BP diastolic 60–108
--- NOTE | 2020-09-23 00:27 | PN ---
DATE: 09/22/2020 SUBJECTIVE: A 60-year-old male. He is in the ICU in severe condition. The patient in turn apparently is having a left-sided CVA with right-sided hemiparesis. There is some history that he has actually had some weakness in his legs for a few weeks anyway and has seen a previous neurologist down at [place], but had not had his CT scan. The patient is quite agitated at times and uncontrolled with his motor agitation, although of course his right arm and leg has marked paresis. He does answer questions and it seems to be able to make some sense with his sentence structure. The patient has been reviewed by Neurology and they have made their timely consent to the situation there. The patient also had extreme hypertensive urgency with blood pressures in the 220/120 diastolic blood pressures. Pulse anywhere from 53-112. The patient has been seen by Dr. Contreras, who was kind enough to review the patient in consultation. OBJECTIVE: VITAL SIGNS: The patient's blood pressure seems to have stable presently on 147/94, respiratory rate 20, pulse 80s, and afebrile. He is at 2 liters at 93%-99%. GENERAL: The patient otherwise is alert when aroused, but as noted has motor agitation, moving all extremities and sometimes trying to crawl out of bed, although his right arm and right leg have marked paresis. LUNGS: Otherwise, the lungs sound basically clear presently. CARDIOVASCULAR: Regular sinus rhythm. ABDOMEN: Soft, nontender. EXTREMITIES: No clubbing, cyanosis, or edema, although the right arm and leg show marked hemiparesis and weakness to that side. The patient has a Babinski on the right and normal reflexes on the plantar on the left. The patient's reflexes are brisk in the right DTR of the leg and normal on the left side. The patient complains of no pain. LABORATORY DATA: His white count did shoot up to 19,000 and because he has been around a [id number] that definitely has COVID-19 is in the hospital with it, we started him on a protocol of some Decadron as well as azithromycin. His lactic acid still remains high at 4.4. Blood sugars are elevated as well. The patient's influenza is negative. His COVID-19 is still pending. We had to give him some boluses of fluid and at one time, his blood pressure did drop down into the 90s and to help him perfuse better, we gave him some bolus of normal saline. The CT scan showed a basal ganglia infarction. IMPRESSION: Therefore, left cerebrovascular accident of the basal ganglia, right sided hemiparesis, hypotension, hypertensive urgency, sinus tachycardia, leukocytosis, mild aneurysmal dilatation of the ascending aorta without dissection, hyperglycemia, elevated lactic acids, type 2 diabetes, hypokalemia, slight elevation of his troponins. PLAN: Continue in the ICU in critical condition. Continue to monitor any changes hemodynamically with his blood pressure and progression of the stroke, although he is on aspirin. He is able to swallow and we will keep him monitored carefully for any other changes. He has been put on antibiotics of Zosyn, Levaquin, Lovenox as well as Decadron since he seems to be having some symptoms possibly related to the COVID-19 possible. We will follow also comments by Dr. Contreras, Cardiology and Dr. Poe, Neurology. SULEIMAN DUNN MD DR: HALEY/santa JOB#: [id number] / [id number]
[2020-09-23] MEDS: IV RINGERS SOLUTION,LACTATED 1,000 ML IV SCH (01:14)
[2020-09-23] MEDS: hydrALAZINE 20 MG/ML VIAL. IV PRN ×2 (02:01→22:53)
[2020-09-23 02:08] LABS: HEMOGLOBIN A1C 9.6 % (4.8-5.6)
[2020-09-23] MEDS: DEXAMETHASONE SOD PHOS 4 MG/ML VIAL. IVP SCH ×4 (05:48→22:57)
[2020-09-23] MEDS: PIPERACILLIN/TAZOBACTAM 4.5 GM in IV NORMAL SALINE 50ML 50 ML IV SCH (05:49)
[2020-09-23 06:16] LABS: BASO % 0 % (0-3); EOS % 0 % (0-3); LYMPH # 0.8 x10^3/uL (1.0-4.8); LYMPH % 3 % (24-48); MEAN CORPUSCULAR HEMOGLOBIN 30 pg (25-35); MEAN CORPUSCULAR HGB CONC 33 g/dL (31-37); MEAN CORPUSCULAR VOLUME 90 fL (79-100); MONO # 0.3 x10^3/uL (0.0-1.1); MONO % 1 % (0-9); NEUT # 21.1 x10^3uL (1.8-7.7); NEUT % 95 % (31-73); PLATELET COUNT 371 x10^3/uL (140-400); RED BLOOD COUNT 5.03 x10^6/uL (4.30-5.70); RED CELL DISTRIBUTION WIDTH 13.5 % (11.5-14.5); WHITE BLOOD COUNT 22.2 x10^3/uL (4.0-11.0)
[2020-09-23 06:21] LABS: CALCIUM 8.6 mg/dL (8.5-10.1); CREATININE 1.4 mg/dL (0.7-1.3); GFR 52.1; POTASSIUM 3.6 mmol/L (3.5-5.1)
[2020-09-23] MEDS: PANTOPRAZOLE 40 MG TABLET. PO SCH (07:30)
[2020-09-23] MEDS: IPRATRPIUM/ALBUTEROL 0.5/2.5MG 3 ML NEBU. INH SCH ×2 (08:00→12:00)
[2020-09-23] MEDS: INSULIN LISPRO 300 UNITS/3 ML VIAL. SQ SCH ×3 (08:00→17:00)
[2020-09-23] MEDS: ASPIRIN 325 MG TABLET PO SCH (08:00)
--- NOTE | 2020-09-23 08:30 | PDOC ---
CARDIO Progress Notes Date & Time Date of Service DATE: 09/23/20 TIME: 08:25 Time of Evaluation 08:25 Subjective Notes restless, alert. Vitals Vitals Vital Signs Date Time Temp Pulse Resp B/P (MAP) Pulse Ox O2 Delivery O2 Flow Rate FiO2 09/23/20 06:00 98.3 94 24 113/72 (86) 100 Room Air 09/22/20 04:50 2.0 Weight Weight [ ] Input and Output I.O. Intake and Output 09/23/20 07:00 Intake Total 2325 ml Output Total 2600 ml Balance -275 ml Intake Oral 25 ml IV Total 2300 ml Output Urine Total 2600 ml Laboratory Labs Laboratory Tests Test 09/21/20 09:00 09/22/20 04:50 09/22/20 05:35 09/22/20 07:40 White Blood Count 10.5 x10^3/uL (4.0-11.0) 19.0 x10^3/uL (4.0-11.0) Red Blood Count 5.25 x10^6/uL (4.30-5.70) 5.20 x10^6/uL (4.30-5.70) Hemoglobin 15.8 g/dL (13.0-17.5) 15.4 g/dL (13.0-17.5) Hematocrit 46.5 % (39.0-53.0) 45.2 % (39.0-53.0) Mean Corpuscular Volume 89 fL (79-100) 87 fL (79-100) Mean Corpuscular Hemoglobin 30 pg (25-35) 30 pg (25-35) Mean Corpuscular Hemoglobin Concent 34 g/dL (31-37) 34 g/dL (31-37) Red Cell Distribution Width 13.0 % (11.5-14.5) 13.1 % (11.5-14.5) Platelet Count 374 x10^3/uL (140-400) 386 x10^3/uL (140-400) Neutrophils (%) (Auto) 78 % (31-73) 86 % (31-73) Lymphocytes (%) (Auto) 16 % (24-48) 8 % (24-48) Monocytes (%) (Auto) 5 % (0-9) 5 % (0-9) Eosinophils (%) (Auto) 0 % (0-3) 0 % (0-3) Basophils (%) (Auto) 1 % (0-3) 1 % (0-3) Neutrophils # (Auto) 8.2 x10^3uL (1.8-7.7) 16.3 x10^3uL (1.8-7.7) Lymphocytes # (Auto) 1.6 x10^3/uL (1.0-4.8) 1.6 x10^3/uL (1.0-4.8) Monocytes # (Auto) 0.5 x10^3/uL (0.0-1.1) 1.0 x10^3/uL (0.0-1.1) Eosinophils # (Auto) 0.0 x10^3/uL (0.0-0.7) 0.0 x10^3/uL (0.0-0.7) Basophils # (Auto) 0.1 x10^3/uL (0.0-0.2) 0.1 x10^3/uL (0.0-0.2) Prothrombin Time 10.0 SEC (9.4-11.4) Prothromb Time International Ratio 1.0 (0.9-1.1) Activated Partial Thromboplast Time 24 SEC (23-33) Fibrinogen 375 mg/dL (200-400) Sodium Level 134 mmol/L (136-145) 137 mmol/L (136-145) Potassium Level 3.6 mmol/L (3.5-5.1) 3.1 mmol/L (3.5-5.1) Chloride Level 95 mmol/L (98-107) 99 mmol/L (98-107) Carbon Dioxide Level 31 mmol/L (21-32) 25 mmol/L (21-32) Anion Gap 8 (6-14) 13 (6-14) Blood Urea Nitrogen 11 mg/dL (8-26) 16 mg/dL (8-26) Creatinine 1.5 mg/dL (0.7-1.3) 1.3 mg/dL (0.7-1.3) Estimated GFR (Cockcroft-Gault) 48.1 56.7 BUN/Creatinine Ratio 7 (6-20) 12 (6-20) Glucose Level 263 mg/dL (70-99) 198 mg/dL (70-99) Hemoglobin A1c 9.6 % (4.8-5.6) Lactic Acid Level 1.8 mmol/L (0.4-2.0) 3.1 mmol/L (0.4-2.0) Calcium Level 9.1 mg/dL (8.5-10.1) 8.7 mg/dL (8.5-10.1) Magnesium Level 2.1 mg/dL (1.8-2.4) 2.2 mg/dL (1.8-2.4) Total Bilirubin 0.8 mg/dL (0.2-1.0) 1.3 mg/dL (0.2-1.0) Gamma Glutamyl Transpeptidase 49 U/L (10-85) Aspartate Amino Transf (AST/SGOT) 10 U/L (15-37) 85 U/L (15-37) Alanine Aminotransferase (ALT/SGPT) 16 U/L (16-63) 19 U/L (16-63) Alkaline Phosphatase 138 U/L (46-116) 124 U/L (46-116) Creatine Kinase 39 U/L (39-308) Troponin I Quantitative < 0.017 ng/mL (0-0.055) 0.131 ng/mL (0-0.055) C-Reactive Protein < 0.5 mg/L (0-3.3) MI-Lkm-V-Type Natriuretic Peptide 44 pg/mL (0-124) Total Protein 7.0 g/dL (6.4-8.2) 6.6 g/dL (6.4-8.2) Albumin 4.0 g/dL (3.4-5.0) 3.6 g/dL (3.4-5.0) Albumin/Globulin Ratio 1.3 (1.0-1.7) 1.2 (1.0-1.7) Thyroid Stimulating Hormone (TSH) 1.551 uIU/mL (0.358-3.740) Segmented Neutrophils % 89 % (35-66) Band Neutrophils % 1 % (0-9) Lymphocytes % 9 % (24-48) Monocytes % 1 % (0-10) Platelet Estimate Adequate (ADEQUATE) D-Dimer (Sara) 0.26 mg/L (0.00-0.50) Glucose (Fingerstick) 256 mg/dL (70-99) Test 09/22/20 07:45 09/22/20 09:15 09/22/20 09:30 09/22/20 10:20 Urine Collection Type Void Urine Color Yellow Urine Clarity Clear Urine pH 7.0 Urine Specific [place] 1.020 Urine Protein 30 mg/dl (NEG-TRACE) Urine Glucose (UA) 500 mg/dL (NEG) Urine Ketones (Stick) 80 mg/dL (NEG) Urine Blood Small (NEG) Urine Nitrite Neg (NEG) Urine Bilirubin Neg (NEG) Urine Urobilinogen Dipstick 1.0 mg/dL (0.2 mg/dL) Urine Leukocyte Esterase Neg (NEG) Urine RBC 1-2 /HPF (0-2) Urine WBC 1-4 /HPF (0-4) Urine Squamous Epithelial Cells Few /LPF Urine Bacteria 0 /HPF (0-FEW) Urine Hyaline Casts Few /HPF Lactic Acid Level 4.4 mmol/L (0.4-2.0) Glucose (Fingerstick) 107 mg/dL (70-99) Blood Gas pH 7.44 (7.35-7.46) Blood Gas PCO2 37 mmHg (35-46) Blood Gas PO2 72 mmHg (80-100) Blood Gas HCO3 25 mmol/L (21-28) Arterial Bld O2 Saturation (Calc) 95 % (92-99) FiO2 21 % Test 09/22/20 10:50 09/22/20 11:02 09/22/20 11:31 09/22/20 17:23 Influenza Type A (Rapid) Negative (NEGATIVE) Influenza Type B (Rapid) Negative (NEGATIVE) Troponin I Quantitative 0.089 ng/mL (0-0.055) Glucose (Fingerstick) 127 mg/dL (70-99) 193 mg/dL (70-99) Test 09/22/20 23:11 09/23/20 06:00 Glucose (Fingerstick) 183 mg/dL (70-99) White Blood Count 22.2 x10^3/uL (4.0-11.0) Red Blood Count 5.03 x10^6/uL (4.30-5.70) Hemoglobin 15.0 g/dL (13.0-17.5) Hematocrit 45.0 % (39.0-53.0) Mean Corpuscular Volume 90 fL (79-100) Mean Corpuscular Hemoglobin 30 pg (25-35) Mean Corpuscular Hemoglobin Concent 33 g/dL (31-37) Red Cell Distribution Width 13.5 % (11.5-14.5) Platelet Count 371 x10^3/uL (140-400) Neutrophils (%) (Auto) 95 % (31-73) Lymphocytes (%) (Auto) 3 % (24-48) Monocytes (%) (Auto) 1 % (0-9) Eosinophils (%) (Auto) 0 % (0-3) Basophils (%) (Auto) 0 % (0-3) Neutrophils # (Auto) 21.1 x10^3uL (1.8-7.7) Lymphocytes # (Auto) 0.8 x10^3/uL (1.0-4.8) Monocytes # (Auto) 0.3 x10^3/uL (0.0-1.1) Eosinophils # (Auto) 0.0 x10^3/uL (0.0-0.7) Basophils # (Auto) 0.0 x10^3/uL (0.0-0.2) Sodium Level 135 mmol/L (136-145) Potassium Level 3.6 mmol/L (3.5-5.1) Chloride Level 96 mmol/L (98-107) Carbon Dioxide Level 22 mmol/L (21-32) Anion Gap 17 (6-14) Blood Urea Nitrogen 21 mg/dL (8-26) Creatinine 1.4 mg/dL (0.7-1.3) Estimated GFR (Cockcroft-Gault) 52.1 Glucose Level 246 mg/dL (70-99) Calcium Level 8.6 mg/dL (8.5-10.1) Physical Exams HEENT: Neck Supple W Full Motion Chest: Symmetric Lungs: Other (diminished ) Heart: RRR Abdomen: Soft N/T Extremities: No Edema Neurology: alert, other (restless ) Assessment Assessment 1. Slight troponin elevation; peak 0.1. most probably demand ischemia. EKG showed sinus rhythm without any acute changes. 2. Bilateral lower extremity weakness in a patient with known history of CVA. Initial CT scan of the head did not show any acute intracranial process, but repeat scan with small hypodensity left basal ganglia that could be small vessel disease or tiny focus of infarct. Continue as per neuro 3. Accelerated hypertension; now controlled 4. Diabetes mellitus type 2: Treat per IM 5. Hyperlipidemia; LDL 208 6. Leukocytosis, lactic acidosis 7. PUI with recent Covid exposure. Covid pending Recommendations Continue ASA. Rectal PRN Statin when able to take oral Echo to assess LV systolic function if COVID negative Ischemic evaluation could be considered as an outpatient pending course of hospitalization. DARNELL LIU APRN Sep 23, 2020 08:30
--- NOTE | 2020-09-23 08:33 | NUR ---
This RN updated patients med rec.
[2020-09-23] MEDS: ENOXAPARIN 40 MG/0.4 ML SYRINGE. SQ SCH (08:56)
[2020-09-23] MEDS: NICOTINE 21MG PATCH. TD SCH (09:00)
[2020-09-23] MEDS: METOPROLOL SUCC 24HR ER 50 MG TAB.ER.24H. PO SCH (09:00)
[2020-09-23] MEDS ORDERED: NICOTINE 21MG PATCH. TD SCH (09:00)
[2020-09-23] MEDS ORDERED: AA 3%/ELECTROLYTE-TPN SOLN/GLY 1,000 ML IV SCH ×2 (09:45→17:00)
--- NOTE | 2020-09-23 09:49 | EKG ---
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
[2020-09-23] MEDS: PIPERACILLIN/TAZOBACTAM 3.375 GM in IV NORMAL SALINE 50ML 50 ML IV SCH ×3 (13:33→22:57)
[2020-09-23] MEDS: IPRATROPIUM/ALBUTEROL 20/100mcg/INH INHALER. INH SCH ×2 (16:00→20:00)
[2020-09-23] MEDS: AA 3%/ELECTROLYTE-TPN SOLN/GLY 1,000 ML IV SCH (18:29)
[2020-09-23] MEDS: LACTOBACILLUS RHAMNOSUS GG 1 CAPSULE. PO SCH (20:33)
[2020-09-23] MEDS ORDERED: ATORVASTATIN CALCIUM 20 MG TABLET PO SCH (21:00)
--- NOTE | 2020-09-23 22:21 | PN ---
DATE: SUBJECTIVE: A 60-year-old gentleman in with a left-sided CVA, right-sided hemiparesis, agitation and the like. The patient's white count has been going up, it started at 10, was up to 19 even before he was started on steroids. PHYSICAL EXAMINATION: VITAL SIGNS: Blood pressure 167/89, respiratory rate 25, pulse 92, afebrile. GENERAL: The patient basically is somewhat agitated, has some motor agitation, especially of the right side. We started him on TPN. PICC line placed as well to help him with that situation. The patient of course is afebrile. Otherwise, he is lethargic, not very much alert. CARDIOVASCULAR: Regular sinus rhythm, sometimes tachycardic. ABDOMEN: Soft. EXTREMITIES: No clubbing, cyanosis or edema. NEUROLOGIC: The patient has flaccidness to the right arm and right leg as earlier stated his eyes were pearly and did track with light okay. LABORATORY DATA: Otherwise, the patient continued to be monitored carefully here. He is in the ICU. His white count has gone up to 22, hemoglobin 15, hematocrit 45. Sodium and potassium 135 and 3.6, BUN and creatinine 21 and 1.4. Blood sugars are on the high side in the 250s. He is on a sliding scale and with the TPN and the Decadron will need to be monitored carefully on those blood sugars as well. He was previously a diabetic and apparently was noncompliant in taking those medications as indicated. IMPRESSION: Left-sided cerebrovascular accident with basal ganglia, right-sided hemiparesis, hypertension, hypertensive urgency as well as sinus tachycardia, leukocytosis, mild aneurysmal dilatation of the ascending aorta without dissection, hyperglycemia, elevated lactic acids, type 2 diabetes, hypokalemia, slight elevation of his troponins as well as motor agitation, lethargy and the like. PLAN: He is being covered with antibiotics, physical and occupational therapy and swallowing study is to be performed on this gentleman. SULEIMAN DUNN MD DR: HALEY/santa JOB#: [id number] / [id number]
[2020-09-24] VITALS (11 sets, daily range): BP systolic 102–163; BP diastolic 59–87
[2020-09-24] MEDS: hydrALAZINE 20 MG/ML VIAL. IV PRN ×2 (04:49→09:52)
--- NOTE | 2020-09-24 05:27 | NUR ---
Shift Note: Pt would open eyes to his name but did not know where he was or why he was here at the beginning of the shift. Advised pt he was at [facility] and why he was admitted (two hours later the pt was able to tell me he was at [facility] but did not know why he was here. VS show elevated BP and HR during the night (hydralazine given as ordered), pt had increased agitation and restlessness during the night (ativan given as ordered), gregory catheter draining clear yellow urine (900mls out this shift). Approximately at 0520 this am pt became extremely tachypneic w/ respirations up to 50, this was after hydralazine given for elevated BP and HR and also after ativan given for increased agitation, pt would not open his eyes at this time or respond to painful stimuli, narcan given (pt cont. to appear agitated but respirations slowed to mid 30s), will continue to monitor. Addendum: 09/24/20 at 0603 by GITA DICKINSON RN 0550: Called physician to notify of pt status, Flumazenil ordered as reversal to ativan, medication given, pt able to open his eyes on his own within a few minutes, still is not talking and continues to be tachypneic in the 40s at this time.
[2020-09-24] MEDS ORDERED: NALOXONE 0.4 MG/ML VIAL. ONE (05:36)
[2020-09-24] MEDS: DEXAMETHASONE SOD PHOS 4 MG/ML VIAL. IVP SCH (05:44)
[2020-09-24] MEDS ORDERED: NALOXONE 0.4 MG/ML VIAL. IV ONE (05:45)
[2020-09-24] MEDS: PIPERACILLIN/TAZOBACTAM 3.375 GM in IV NORMAL SALINE 50ML 50 ML IV SCH (05:45)
[2020-09-24] MEDS ORDERED: FLUMAZENIL 0.5 MG/5 ML VIAL. IV ONE (06:00)
[2020-09-24] MEDS: AA 3%/ELECTROLYTE-TPN SOLN/GLY 1,000 ML IV SCH (06:22)
[2020-09-24] MEDS: ASPIRIN 325 MG TABLET PO SCH (07:13)
[2020-09-24] MEDS: LACTOBACILLUS RHAMNOSUS GG 1 CAPSULE. PO SCH (07:13)
[2020-09-24] MEDS: PANTOPRAZOLE 40 MG TABLET. PO SCH (07:13)
[2020-09-24] MEDS: METOPROLOL SUCC 24HR ER 50 MG TAB.ER.24H. PO SCH (07:14)
--- NOTE | 2020-09-24 07:52 | PDOC ---
CARDIO Progress Notes Date & Time Date of Service DATE: 09/24/20 TIME: 07:48 Time of Evaluation 07:48 Subjective Notes sleeping Vitals Vitals Vital Signs Date Time Temp Pulse Resp B/P (MAP) Pulse Ox O2 Delivery O2 Flow Rate FiO2 09/24/20 07:17 36 102/64 (77) Room Air 09/24/20 07:14 124 09/24/20 06:00 95 09/24/20 05:00 98.4 09/22/20 04:50 2.0 Weight Weight [ ] Input and Output I.O. Intake and Output 09/24/20 07:00 Intake Total 1150 ml Output Total 1700 ml Balance -550 ml Intake Oral 0 ml IV Total 1150 ml Output Urine Total 1700 ml # Bowel Movements 1 Laboratory Labs Laboratory Tests Test 09/22/20 09:15 09/22/20 09:30 09/22/20 10:20 09/22/20 10:50 Lactic Acid Level 4.4 mmol/L (0.4-2.0) Glucose (Fingerstick) 107 mg/dL (70-99) Blood Gas pH 7.44 (7.35-7.46) Blood Gas PCO2 37 mmHg (35-46) Blood Gas PO2 72 mmHg (80-100) Blood Gas HCO3 25 mmol/L (21-28) Arterial Bld O2 Saturation (Calc) 95 % (92-99) FiO2 21 % Influenza Type A (Rapid) Negative (NEGATIVE) Influenza Type B (Rapid) Negative (NEGATIVE) Test 09/22/20 11:02 09/22/20 11:31 09/22/20 15:55 09/22/20 17:23 Troponin I Quantitative 0.089 ng/mL (0-0.055) Glucose (Fingerstick) 127 mg/dL (70-99) 193 mg/dL (70-99) Triglycerides Level 180 mg/dL (0-150) Cholesterol Level 208 mg/dL (0-200) LDL Cholesterol, Calculated 142 mg/dL (0-100) VLDL Cholesterol, Calculated 36 mg/dL (0-40) Non-HDL Cholesterol Calculated 178 mg/dL (0-129) HDL Cholesterol 30 mg/dL (40-60) Cholesterol/HDL Ratio 6.0 Cortisol PM Sample 40.29 ug/dL (3.1-16.7) Test 09/22/20 23:11 09/23/20 06:00 09/23/20 13:42 09/23/20 18:04 Glucose (Fingerstick) 183 mg/dL (70-99) 269 mg/dL (70-99) 171 mg/dL (70-99) White Blood Count 22.2 x10^3/uL (4.0-11.0) Red Blood Count 5.03 x10^6/uL (4.30-5.70) Hemoglobin 15.0 g/dL (13.0-17.5) Hematocrit 45.0 % (39.0-53.0) Mean Corpuscular Volume 90 fL (79-100) Mean Corpuscular Hemoglobin 30 pg (25-35) Mean Corpuscular Hemoglobin Concent 33 g/dL (31-37) Red Cell Distribution Width 13.5 % (11.5-14.5) Platelet Count 371 x10^3/uL (140-400) Neutrophils (%) (Auto) 95 % (31-73) Lymphocytes (%) (Auto) 3 % (24-48) Monocytes (%) (Auto) 1 % (0-9) Eosinophils (%) (Auto) 0 % (0-3) Basophils (%) (Auto) 0 % (0-3) Neutrophils # (Auto) 21.1 x10^3uL (1.8-7.7) Lymphocytes # (Auto) 0.8 x10^3/uL (1.0-4.8) Monocytes # (Auto) 0.3 x10^3/uL (0.0-1.1) Eosinophils # (Auto) 0.0 x10^3/uL (0.0-0.7) Basophils # (Auto) 0.0 x10^3/uL (0.0-0.2) Sodium Level 135 mmol/L (136-145) Potassium Level 3.6 mmol/L (3.5-5.1) Chloride Level 96 mmol/L (98-107) Carbon Dioxide Level 22 mmol/L (21-32) Anion Gap 17 (6-14) Blood Urea Nitrogen 21 mg/dL (8-26) Creatinine 1.4 mg/dL (0.7-1.3) Estimated GFR (Cockcroft-Gault) 52.1 Glucose Level 246 mg/dL (70-99) Calcium Level 8.6 mg/dL (8.5-10.1) Microbiology Micro Microbiology 09/22/20 Blood Culture - Preliminary, Resulted NO GROWTH AFTER 1 DAY... Physical Exams HEENT: Neck Supple W Full Motion Chest: Symmetric Lungs: Other (diminished ) Heart: RRR (ST ) Abdomen: Soft N/T Extremities: No Edema Neurology: other (sleeping ) Assessment Assessment 1. Slight troponin elevation; peak 0.1. most probably demand ischemia. EKG showed sinus rhythm without any acute changes. 2. Bilateral lower extremity weakness in a patient with known history of CVA. Initial CT scan of the head did not show any acute intracranial process, but repeat scan with small hypodensity left basal ganglia that could be small vessel disease or tiny focus of infarct. Continue as per neuro 3. Accelerated hypertension; now controlled 4. Diabetes mellitus type 2: Treat per IM 5. Hyperlipidemia; LDL 208 6. Leukocytosis, lactic acidosis 7. PUI with recent Covid exposure. Covid negative 8. Sinus tachycardia, reactive Recommendations Continue ASA. Rectal PRN Statin when able to take oral Echo to assess LV systolic function Metoprolol PRN for rate control Allow for higher end blood pressure due to concerns for acute stroke Ischemic evaluation could be considered as an outpatient pending course of hospitalization. DARNELL LIU APRN Sep 24, 2020 07:52
[2020-09-24] MEDS: IPRATROPIUM/ALBUTEROL 20/100mcg/INH INHALER. INH SCH (08:00)
[2020-09-24] MEDS ORDERED: METOPROLOL TARTRATE 5 MG/5 ML VIAL. IV PRN (08:30)
[2020-09-24] MEDS ORDERED: ASPIRIN RECTAL 300 MG SUPP. RC SCH (09:00)
[2020-09-24] MEDS: ENOXAPARIN 40 MG/0.4 ML SYRINGE. SQ SCH (09:00)
--- NOTE | 2020-09-24 09:07 | PN ---
DATE: 09/24/2020 SUBJECTIVE: The patient is drowsy and unresponsive to verbal commands or painful or noxious stimuli. OBJECTIVE: GENERAL: Well-developed, well-nourished male, not in acute distress. VITAL SIGNS: Blood pressure 102/64, respiratory rate 36, pulse is 114, oxygen saturation is 95% on room air. HEENT: Normocephalic, atraumatic, otherwise unremarkable. NECK: Supple. Negative for carotid bruit, lymphadenopathy or thyromegaly. LUNGS: Clear to A and P. CARDIOVASCULAR: Regular rate and rhythm, normal S1, S2. ABDOMEN: Soft. Bowel sounds positive. EXTREMITIES: Negative for cyanosis, clubbing or edema. NEUROLOGICAL EXAM: Mental Status: The patient is drowsy, not responsive to noxious stimuli. Pupils are equal and sluggishly reactive to light. Extraocular movements are slow. No apparent facial asymmetry. Further evaluation is limited at this time. Motor examination: The patient has flaccid upper extremities and lower extremities. Sensory: Diminished pinprick and light touch senses. Deep tendon reflexes were symmetric and hypoactive with absent Achilles responses. Gait not tested. IMPRESSION: 1. Status post stroke with positive head CT scan for left basal ganglia infarct. 2. History of stroke with chronic small vessel ischemic changes. 3. Multiple medical problems include acute encephalopathy, probably multifactorial, leukocytosis, rule out systemic infection versus sepsis, diabetes mellitus and hypertension. RECOMMENDATIONS: 1. Continue with current management initiated by Dr. Oviedo. 2. Avoid excessive sedation as possible. 3. The patient will have ___ echocardiogram today. M Tracy SCHULER MD DR: JAIRON/santa JOB#: [id number] / [id number]
--- NOTE | 2020-09-24 09:13 | PN ---
DATE: 09/23/2020 SUBJECTIVE: The patient is drowsy, but responds to painful stimuli. He does not communicate. No change in his mental status since yesterday. OBJECTIVE: GENERAL: Well-developed, well-nourished male, not in acute distress. VITAL SIGNS: Blood pressure 144/80, respiratory rate 27, pulse is 87 and regular, oxygen saturation is 99% on room air, and temperature is 98.3. HEENT: Normocephalic, atraumatic, otherwise unremarkable. NECK: Supple. Negative for carotid bruit, lymphadenopathy or thyromegaly. LUNGS: Clear to A and P. CARDIOVASCULAR: Regular rate and rhythm, normal S1, S2. ABDOMEN: Soft. EXTREMITIES: Negative for cyanosis, clubbing or edema. NEUROLOGICAL EXAM: Mental Status: The patient is drowsy, just response to painful stimuli. Pupils are equal and reactive to light and the extraocular movements are slow. Further evaluation of his mental status is limited at this time. Cranial nerves: Pupils are equal and sluggishly reactive to light. Further evaluation is limited at this time. The patient has flaccid upper extremities, more evident on the right upper and lower extremities. Sensory examination revealed diminished pinprick and light touch senses. Deep tendon reflexes were symmetric, but hypoactive with absent Achilles responses. LABORATORY DATA: CBC revealed white blood cells of 22.2 thousand, hemoglobin 15, hematocrit 44, platelet count is 95,000, neutrophils is high at 21.1 with lymphocytes of 0.8. Chemistry revealed sodium of 135, potassium 3.6, chloride 96, BUN 21, creatinine 1.4, glucose 246,000. Calcium 8.6. COVID coronavirus PCR is not detected. IMPRESSION: 1. Acute encephalopathy, probably multifactorial including stroke and possible systemic infection. 2. Multiple medical problems include diabetes mellitus, hypertension. RECOMMENDATIONS: 1. Continue with current management initiated by Dr. Oviedo. 2. Avoid excessive sedation as possible. The patient may need a blood culture to rule out sepsis. M Tracy SCHULER MD DR: JAIRON/santa JOB#: [id number] / [id number]
[2020-09-24] MEDS: NICOTINE 21MG PATCH. TD SCH (09:25)
--- NOTE | 2020-09-24 09:28 | NUR ---
Patient having increased work of breathing. Edelmira ALEXANDER at bedside, received orders for STAT Echo. Stat Echo being completed, upon completion of that exam, Dr. Oviedo bedside to assess patient. Patient now tachypneic in the 50s. Patient minimally responsive. Received orders for STAT Chest X-Ray, Start Head CT and Stat Arterial Blood Gas. Will complete exams and continue to critically monitor patient.
[2020-09-24 09:59] LABS: BGAS PH 7.43 (7.35-7.46)
[2020-09-24] MEDS: INSULIN LISPRO 300 UNITS/3 ML VIAL. SQ SCH (09:59)
--- NOTE | 2020-09-24 10:09 | NUR ---
Patient continues to have increased work of breathing. Patient placed on 2LNC, Chest X-Ray complete. Dr. Oviedo paged regarding current patient status. Pending plan for Head CT at this point. Will continue to critically monitor.
--- NOTE | 2020-09-24 10:22 | RAD ---
XR CHEST 1V History: Reason: Respiratory Status change/ Spl. Instructions: / History: Comparison: September 21, 2020 Findings: Low lung volumes. Patchy bibasilar opacities. No pleural effusion. No pneumothorax. Normal heart size . Rounded density projecting over the right upper abdomen measures 4 mm. Impression: 1. Low lung volumes with patchy bibasilar opacities, likely atelectasis. 2. New small rounded density projecting over the right upper abdomen, may relate to recently ingeste d material. Recommend clinical evaluation and imaging follow-up. Electronically signed by: Estrada Mcmanus DO (09/24/2020 10:20 AM) [id number]
--- NOTE | 2020-09-24 10:30 | NUR ---
Patient's arrived bedside to see the patient. [place] Regulator Inspector bedside with at this time. expressed desire to place patient as DNR and that he "wouldn't want to live like this." Code status changed to DNR per order. expressed desire to keep patient in hospital on hospice. Will continue to monitor.
[2020-09-24] MEDS ORDERED: MORPHINE SULFATE 4 MG/ML DISP.SYRIN. IM ONE (11:15)
[2020-09-24] MEDS ORDERED: MORPHINE SULFATE 4 MG/ML DISP.SYRIN. IV ONE (11:30)
--- NOTE | 2020-09-24 12:34 | NUR ---
Decision made to discharge patient from hospital care. Patient will be placed in inpatient hospice. [facility] will be providing care moving forward. Patient discharged from hospital and moved from ICU to room 128, accompanied by family and all patient belongings. Bedside RN will continue to provide care at this time.
[2020-09-24] MEDS ORDERED: MORPHINE SULFATE 4 MG/ML DISP.SYRIN. IV PRN (13:15)
--- NOTE | 2020-09-24 13:30 | CARD ---
MR#: [id number] Date of Study: 09/24/2020 Ordering Physician: DARNELL LIU, Referring Physician: DARNELL LIU, Tech: Birgit Lara APPROVED REPORT EXAM: Two-dimensional echocardiogram with contrast. Other Information Quality : AverageHR: 119bpm Technically limited study due to Rapid heart rate, labored breathing INDICATION CVA/TIA Hypertension/HCVD Echo Enhancing Agent Indication: Rule Out Septal Defect Agent/Amount Used: Agitated [id number] RISK FACTORS Hypertension Diabetes 2D DIMENSIONS Left Atrium(2D)2.6 (1.6-4.0cm)IVSd0.9 (0.7-1.1cm) Aortic Root(2D)3.2 (2.0-3.7cm)LVDd4.8 (3.9-5.9cm) LVOT Diameter2.0 (1.8-2.4cm)PWd1.0 (0.7-1.1cm) LVDs2.3 (2.5-4.0cm)FS (%) 52.3 % SV91.4 mlLVEF(%)83.3 (>50%) Aortic Valve AoV Peak Chris.193.6cm/sAoV VTI32.2cm AO Peak GR.15.0mmHgLVOT Peak Chris.174.9cm/s LVOT VTI 35.95cmAO Mean GR.8mmHg MARGE (VMAX)2.74ok3NLX (VTI)3.45cm2 Mitral Valve MV E Qvrbiycu68.0cm/sMV DECEL [id number] MV A Mmerbzrw140.9cm/sE/A Ratio0.8 Pulmonary Valve PV Peak Hlrkgqlj543.6cm/sPV Peak Grad.6mmHg Tricuspid Valve RAP [id number] LEFT VENTRICLE The left ventricle is normal size. There is normal left ventricular wall thickness. The left ventricu lar systolic function is normal. The Ejection Fraction is 65-70%. There is normal LV segmental wall m otion. Transmitral Doppler flow pattern is Grade I-abnormal relaxation pattern. RIGHT VENTRICLE The right ventricle is normal size. There is normal right ventricular wall thickness. The right ventr icular systolic function is normal. ATRIA The left atrium size is normal. The right atrium size is normal. The interatrial septum is intact wit h no evidence for an atrial septal defect or patent foramen ovale as noted on 2-D or Doppler imaging. Bubble study appears negative. AORTIC VALVE The aortic valve is normal in structure and function. Doppler and Color Flow revealed no significant aortic regurgitation. There is no significant aortic valvular stenosis. Calculated aortic valve area is 2.9 cm2 with maximum pressure gradient of 15 mmHg and mean pressure gradient of 8 mmHg. MITRAL VALVE The mitral valve is normal in structure and function. There is no evidence of mitral valve prolapse. There is no mitral valve stenosis. Doppler and Color-flow revealed trace mitral regurgitation. TRICUSPID VALVE The tricuspid valve is normal in structure and function. Doppler and Color Flow revealed no tricuspid valve regurgitation noted. There is no tricuspid valve stenosis. PULMONIC VALVE The pulmonic valve is not well visualized. Doppler and Color Flow revealed trace pulmonic valvular re gurgitation. GREAT VESSELS The aortic root is normal in size. The ascending aorta is borderline dilated. The IVC is normal in si ze and collapses >50% with inspiration. PERICARDIAL EFFUSION There is no evidence of significant pericardial effusion. Critical Notification Critical Value: No <Conclusion> The left ventricular systolic function is normal. The Ejection Fraction is 65-70%. There is normal LV segmental wall motion. Transmitral Doppler flow pattern is Grade I-abnormal relaxation pattern. Trace mitral regurgitation. There is no evidence of significant pericardial effusion. Bubble study appears to be negative for PFO/ASD. Signed by : Vincenzo Contreras, Electronically Approved : 09/24/2020 13:29:28
--- NOTE | 2020-09-26 21:39 | DS ---
DATE OF DISCHARGE: 09/24/2020 HOSPITAL COURSE: This is a 60-year-old gentleman having problems with his lower extremities, extreme weakness in bilateral legs with right greater than that of the left apparently been seen by neurologist down at [place] for evaluation on this; however, this became increasingly weaken, unable to get out of bed. The patient was brought in and was found to have probable a left sided CVA in his basal ganglia. The patient also had a CT scan done with contrast showed bilateral carotid arteries were basically normal. The patient, however, went into a coma. His white count went up. He was treated with IV antibiotic therapy because of his elevated lactic acid, which may have been metabolic in nature, but he was covered with IV antibiotic therapy. Cortisol levels were elevated a.m. at 42 and p.m. at 40. The patient's sugars were slightly elevated anywhere from 120-193. Troponins were also elevated as well. The patient's basic sodium and potassium were 137 and 3.1. Electrolyte replacement. BUN and creatinine 16 and 1.3. The patient otherwise continued to deteriorate. He had fixation of his eyes to the left, unresponsive to even painful stimuli. Pupils were unreactive. The patient was placed on hospice per family's request ___ done for this individual and he was placed on hospice later on to pass away. OVERALL IMPRESSION: Left sided cerebrovascular accident, leukocytosis, lactic acidosis, hypercortisol levels. 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 The patient was discharged from the ICU, placed on hospice. SULEIMAN DUNN MD DR: HALEY/santa JOB#: [id number] / [id number]
[2020-09-30 15:12] LABS: METANEPH UR 131 ug/L (Undefined); NORMETANEPHRINES UR 288 ug/L (Undefined); TOTAL METANEPHRINES UR 406 ug/24 hr (58-276)
--- NOTE | 2020-10-21 18:36 | DS ---
DATE OF DISCHARGE: 09/24/2020 SUMMARY HOSPITAL COURSE: He is a 60-year-old gentleman came in with severe lower leg weakness, primarily on his right leg. CT scan showed significant left sided CVA in his basal ganglia. The patient had bilateral carotid artery stenosis. In any case, the patient never regained consciousness from his stroke. Her sugars were elevated. Troponins were elevated as well. The patient basically became unresponsive despite all appropriate measures to be undertaken. The patient was noted to be entered into hospice per his family's request and he deteriorated overall. Fixation of his eyes deviated to the left. In any case, the patient was terminal, placed on hospice and quietly. IMPRESSION: Left-sided cerebrovascular accident, lactic acidosis, hypercortisol levels, coronavirus negative, cerebrovascular accident of the basal ganglia with right-sided hemiparesis, hypertensive urgency, sinus tachycardia, hyperglycemia, and hypokalemia. Family was consoled with hospice per their request. SULEIMAN DUNN MD DR: HALEY/santa JOB#: [id number] / [id number]
== END 2020-09-24 12:36 | disposition hospice, inpatient (51) | DRG 871 ==
LOC: ER 08:37 → ICU 12:45
PROVIDERS: ADMIT Family Medicine; ATTEND Family Medicine
DX: A41.9 Sepsis, unspecified organism (principal); I63.9 Cerebral infarction, unspecified; G92 Toxic encephalopathy; E87.2 Acidosis; G81.91 Hemiplegia, unspecified affecting right dominant side; E87.1 Hypo-osmolality and hyponatremia; D72.829 Elevated white blood cell count, unspecified; E87.6 Hypokalemia; E78.5 Hyperlipidemia, unspecified; F17.210 Nicotine dependence, cigarettes, uncomplicated; E11.65 Type 2 diabetes mellitus with hyperglycemia; I10 Essential (primary) hypertension; I16.0 Hypertensive urgency; I71.2 Thoracic aortic aneurysm, without rupture; Z20.828 Contact with and (suspected) exposure to other viral communicable diseases; Z91.14 Patient's other noncompliance with medication regimen; Z82.49 Family history of ischemic heart disease and other diseases of the circulatory system
CPT/HCPCS: 36415; 70450; 70496; 71045; 71275; 80048; 80053; 80061; 81001; 82533; 82550; 82607; 82803; 82947; 82977; 83036; 83605; 83735; 83835; 83880; 84443; 84484; 85007; 85025; 85379; 85384; 85610; 85730; 86140; 87040; 87804; 93005; 93306; J0360; J1100; J1650; J1815; J1956; J2060; J2270; J2310; J2543; J3490; J7120; U0003; 99285-25; J7030

== ENCOUNTER 2020-09-24 11:42 | Inpatient (IN) | payer MEDICARE, OTHER ==
[~2020-09-24] VITALS: Ht 170.2 cm; Wt 65.6 kg
[2020-09-24] MEDS ORDERED: BISACODYL 10 MG SUPP.RECT PR PRN (13:00)
[2020-09-24] MEDS ORDERED: ACETAMINOPHEN 650 MG SUPP.RECT. PR PRN (13:00)
[2020-09-24] MEDS ORDERED: SCOPOLAMINE 1.5MG PATCH. TD SCH (13:30)
[2020-09-24] MEDS: MORPHINE SULFATE 30 MG/30 ML 30 ML IV PRN ×2 (13:31→19:11)
[2020-09-24 19:56] VITALS: BP 99/63
--- NOTE | 2020-09-24 23:00 | NUR ---
At shift change, pt somnolent/sedated in bed with LAB TECHNOLOGIST gtt running at 6mg/hr, pt on [facility] for Com[facility] Care. Pt unresponsive to voice or touch, did move hand slightly to painful stimuli and closed month during oral care routine. (Janis) at bedside along with a few other visitors during 1st half on shift. Family seemed to enjoy visit and verbalized understanding of POC. VS assessed and stable except for low O2 sat. declined placing pt on O2 and pt appears comfortable without it. PRN Ativan given per Janis's request after all other visitors left for the night. Recliner chair pulled up next to bed so Janis could sleep next to pt, very appreciative.
[2020-09-25] MEDS: MORPHINE SULFATE 30 MG/30 ML 30 ML IV PRN ×5 (00:16→17:17)
[2020-09-25 05:33] VITALS: BP 100/64
--- NOTE | 2020-09-25 05:40 | NUR ---
Pt remained unresponsive & somnolent during the night with CURTAIN FITTER gtt running at 6mg/hr. PRN Ativan given per Janis's request with turning and oral care in AM. Pt with decreased unresponsiveness to painful stimuli this AM with turning and oral care. (Janis) remained at bedside during night. More family to come this AM for a visit.
[2020-09-25 08:07] VITALS: BP 68/36
[2020-09-25 09:14] VITALS: BP 88/52
--- NOTE | 2020-09-25 11:23 | NUR ---
PATIENT IS IN A BED UPON ASSESSMENT , UNRESPONSIVE, BLAINE AT THE BED SIDE ALONG WITH OTHER FAMILY MEMBERS. PATIENT IS UNDER HOSPICE CARE, PT IS ON MORPHINE CONTINUOUS DRIP AT 7MG/HR THIS AM, PATIENT IS ON RA ,HAS IRREGULAR BREATHING, GASPING AT TIMES, PER 'S REQUEST MORPHINE INCREASED UP 8 MG/HR TO DECREASE AIR HUNGER AND PROMOTE COMFORT.
--- NOTE | 2020-09-25 18:18 | NUR ---
THIS RN WENT TO THE PATIENT ROOM WITH HOBBER,PATIENT WAS UNRESPONSIVE,NO BREATH SOUNDS NOTED, NO HEARTBEAT FOR TWO MINUTES, NO RESPONSE TO VERBAL OR TACTILE STIMULI. TWO RN VERIFICATIONS WAS PERFORM PER PROTOCOL, PATIENT PRONOUNCED AT 1802. FAMILY IS AT THE BED SIDE. DR. PINTO NOTIFIED.
--- NOTE | 2020-09-25 18:29 | NUR ---
DR. DUNN WAS NOTIFIED OF PATIENT PASSED.
--- NOTE | 2020-09-25 20:45 | NUR ---
Janis declined organ donation, body now able to be released to [facility]. Call placed ([phone]) and notified of need for pickler helper. Will send entry level sales representative shortly.
--- NOTE | 2020-09-26 00:25 | NUR ---
[facility]. No belongings.
--- NOTE | 2020-10-22 09:39 | DS ---
DATE OF DISCHARGE: 09/25/2020 SUMMARY HOSPITAL COURSE: He is a 60-year-old gentleman came in with severe lower leg weakness, primarily on his right leg. CT scan showed significant left sided CVA in his basal ganglia. The patient had bilateral carotid artery stenosis. In any case, the patient never regained consciousness from his stroke. Her sugars were elevated. Troponins were elevated as well. The patient basically became unresponsive despite all appropriate measures to be undertaken. The patient was noted to be entered into hospice per his family's request and he deteriorated overall. Fixation of his eyes deviated to the left. In any case, the patient was terminal, placed on hospice and quietly. IMPRESSION: Left-sided cerebrovascular accident, lactic acidosis, hypercortisol levels, coronavirus negative, cerebrovascular accident of the basal ganglia with right-sided hemiparesis, hypertensive urgency, sinus tachycardia, hyperglycemia, and hypokalemia. Family was consoled with hospice per their request. SULEIMAN DUNN MD DR: HALEY/santa JOB#: [id number] / [id number]
== END 2020-09-25 23:25 | DRG 65 ==
LOC: LND 12:34
PROVIDERS: ADMIT Family Medicine; ATTEND Family Medicine
DX: I63.233 Cerebral infarction due to unspecified occlusion or stenosis of bilateral carotid arteries (principal); E87.1 Hypo-osmolality and hyponatremia; G81.91 Hemiplegia, unspecified affecting right dominant side; E87.2 Acidosis; I16.0 Hypertensive urgency; Z20.828 Contact with and (suspected) exposure to other viral communicable diseases; E87.6 Hypokalemia; Z51.5 Encounter for palliative care; Z79.899 Other long term (current) drug therapy; Z86.73 Personal history of transient ischemic attack (TIA), and cerebral infarction without residual deficits
CPT/HCPCS: J2060; J2270